=== PATIENT | male | born 1970 | race Caucasian/White ===

== ENCOUNTER 2019-06-12 17:34 | Emergency (ER) | payer BC ==
--- NOTE | 2019-06-12 18:06 | EDM.PDOC ---
ED HPI GENERAL MEDICAL PROBLEM - General Chief Complaint: Back Pain or Injury Stated Complaint: LOWER LT PAIN Time Seen by Provider: 06/12/19 18:06 Source of Information: Reports: Patient History Limitations: Reports: No Limitations - History of Present Illness INITIAL COMMENTS - FREE TEXT/NARRATIVE: HISTORY AND PHYSICAL: History of present illness: Patient is a 49-year-old male presents to the ED with complaint of low back pain. Patient reports history of back pain on and off for years. He states this morning he bent over getting his sled ready to go ice fishing and felt pain in his left low back. He got on his inversion table and laid down for a nap afterwards. He states after waking up from his nap he could not get out of bed secondary to the pain. He reports temporarily having numbness in his left leg but this has since resolved. He denies saddle anesthesia, bowel or bladder incontinence, fevers or chills, lower extremity weakness or foot drop. Review of systems: As per history of present illness and below otherwise all systems reviewed and negative. Past medical history: As per history of present illness and as reviewed below otherwise noncontributory. Surgical history: As per history of present illness and as reviewed below otherwise noncontributory. Social history: No reported history of drug or alcohol abuse. Family history: As per history of present illness and as reviewed below otherwise noncontributory. Physical exam: General: Patient sitting comfortably in no acute distress and nontoxic appearing HEENT: Atraumatic, normocephalic, pupils reactive, negative for conjunctival pallor or scleral icterus, mucous membranes moist, throat clear, neck supple, nontender, trachea midline. No meningeal signs. Lungs: Clear to auscultation, breath sounds equal bilaterally, chest nontender. Heart: S1S2, regular, negative for clicks, rubs, or overt murmur. Abdomen: Soft, nondistended, nontender. Negative for masses or hepatosplenomegaly. Negative for costovertebral tenderness. No rigidity, rebound , guarding. Pelvis: Stable nontender. Genitourinary: Deferred. Rectal: Deferred. Spine: No vertebral tenderness to palpation. Left lumbar paraspinal tenderness to palpation. Extremities: Atraumatic, negative for cords or calf pain. Neurovascular unremarkable. Neuro: Awake, alert, oriented. Cranial nerves II through XII unremarkable. Cerebellum unremarkable. Motor and sensory unremarkable throughout. Exam nonfocal. Notes: Diagnostics: x-ray lumbar spine Therapeutics: 60mg Norflex IM 60mg Toradol IM 5/325mg Tappan PO Prescriptions: Impression: Lumbar back pain Definitive disposition and diagnosis as appropriate pending reevaluation and review of above. left back Pain Score (Numeric/FACES): 2 - Related Data Allergies Allergy/AdvReac Type Severity Reaction Status Date / Time cephalexin [From Keflex] Allergy Hives Verified 06/12/19 17:53 Sulfa (Sulfonamide Allergy Hives Verified 06/12/19 17:53 Antibiotics) Home Meds: Home Meds Citalopram [Citalopram HBr] 40 mg PO DAILY 06/12/19 [History] Pyridostigmine [Mestinon] 40 mg PO DAILY 06/12/19 [History] Past Medical History Other Neuro History: myasthenia gravis, occular per PT - Infectious Disease History Infectious Disease History: Reports: Chicken Pox Social & Family History - Family History Family Medical History: Noncontributory - Tobacco Use Smoking Status *Q: Never Smoker - Recreational Drug Use Recreational Drug Use: No ED ROS GENERAL - Review of Systems Review Of Systems: Comprehensive ROS is negative, except as noted in HPI. ED EXAM,LOWER BACK PAIN/INJURY - Physical Exam Exam: See Below (see dictation) Course - Vital Signs Last Recorded V/S: Last Vital Signs Temp 97.8 F 06/12/19 17:55 Pulse 87 06/12/19 20:36 Resp 18 06/12/19 20:36 BP 127/76 06/12/19 17:55 Pulse Ox 98 06/12/19 20:36 - Orders/Labs/Meds Meds: Medications Discontinued Medications Generic Name Dose Route Start Last Admin Trade Name Freq PRN Reason Stop Dose Admin Hydrocodone Bitart/Acetaminophen 1 tab 06/12/19 19:45 06/12/19 19:53 Tappan 325-5 Mg PO 06/12/19 19:46 1 tab ONETIME ONE Administration Ketorolac Tromethamine 60 mg 06/12/19 18:17 06/12/19 18:25 Toradol IM 06/12/19 18:18 60 mg ONETIME ONE Administration Orphenadrine Citrate 60 mg 06/12/19 18:17 06/12/19 18:25 Norflex IM 06/12/19 18:18 60 mg ONETIME ONE Administration Departure - Departure Time of Disposition: 21:16 Disposition: Home, Self-Care 01 Condition: Good Clinical Impression: Lumbar back pain - Discharge Information Instructions: Acute Back Pain, Adult Referrals: PCP,Not In Area [Primary Care Provider] - Forms: ED Department Discharge Additional Instructions: The need for follow-up, as well as the timing and circumstances, are variable depending upon the specifics of your emergency department visit. If you don't have a primary care physician on staff, we will provide you with a referral. We always advise you to contact your personal physician following an emergency department visit to inform them of the circumstance of the visit and for follow-up with them and/or the need for any referrals to a consulting specialist. The emergency department will also refer you to a specialist when appropriate. This referral assures that you have the opportunity for follow-up care with a specialist. All of these measure are taken in an effort to provide you with optimal care, which includes your follow-up. Under all circumstances we always encourage you to contact your private physician who remains a resource for coordinating your care. When calling for follow-up care, please make the office aware that this follow-up is from your recent emergency room visit. If for any reason you are refused follow-up, please contact the [facility] at and asked to speak to the emergency department charge nurse. [facility] [address] [place] [address] [place] [address] Take medications as instructed Follow up with primary care provider Return to ED as needed as discussed Sepsis Event Note - Evaluation Sepsis Screening Result: No Definite Risk - Focused Exam Vital Signs: Vital Signs Temp Pulse Resp BP Pulse Ox 06/12/19 20:36 87 18 98 06/12/19 17:55 97.8 F 81 18 127/76 95 Date Exam was Performed: 06/12/19 Time Exam was Performed: 21:15
[2019-06-12] MEDS ORDERED: Orphenadrine 60 MG/2 ML Inj IM ONE (18:17)
[2019-06-12] MEDS ORDERED: Ketorolac 60 MG/2 ML SDV IM ONE (18:17)
--- NOTE | 2019-06-12 19:40 | CR ---
INDICATION: Re-injury and pain. Chronic low back pain. TECHNIQUE: Lumbar spine 3 view COMPARISON: None FINDINGS: Bones: Alignment is normal. No fractures or significant bone lesions. Joints: Disc spaces and facets are unremarkable. Soft tissues: Unremarkable. IMPRESSION: Unremarkable lumbar spine. Dictated by Naseem Park MD @ Jun 12 2019 7:37PM Signed by Dr. Naseem Park @ Jun 12 2019 7:39PM
[2019-06-12] MEDS ORDERED: Acetaminophen/HYDROcodone 325-5 MG Tab PO ONE (19:45)
== END 2019-06-12 20:37 | disposition home or self-care (01) ==
LOC: MW.ED 17:34
DX: M54.5 Low back pain (principal); Z88.1 Allergy status to other antibiotic agents; Z88.2 Allergy status to sulfonamides; Z79.899 Other long term (current) drug therapy
CPT/HCPCS: 72100; 96372; 99283; A9270; J1885; J2360